=== PATIENT | male | born 1980 | race Caucasian/White ===

== ENCOUNTER 2019-12-30 10:01 | Emergency (ER) | payer SELFPAY ==
[~2019-12-30] VITALS: Ht 190.5 cm; Wt 225.2 kg
--- NOTE | 2019-12-30 10:27 | ED Integumentary General ---
General Chief Complaint: Skin/Wound Problems Stated Complaint: RT LEG PAIN/REDNESS,LOW BP,FEVER Source: patient Exam Limitations: no limitations History of Present Illness Date Seen by Provider: Dec 30, 2019 Time Seen by Provider: 10:15 Initial Comments Patient with a history of a nonhealing superficial wound of his right lower leg for several months. Has been seen his PCP with gradual improvement. Does have chronic edema of both lower extremities. This morning noticed some redness and increased swelling of his right leg around the wound, he went to the [facility] and was sent to the ER for treatment for cellulitis. Denies significant pain, no recent injury, no chest pain or shortness of air. Allergies and Home Medications Allergies Coded Allergies: Sulfa (Sulfonamide Antibiotics) (Verified Allergy, Unknown, 12/30/19) lisinopril (Verified Allergy, Unknown, 12/30/19) Patient Home Medication List Home Medication List Reviewed: Yes Review of Systems Review of Systems Constitutional: see HPI; No fever, No malaise Respiratory: No cough, No short of breath Cardiovascular: No chest pain, No palpitations Musculoskeletal: see HPI; No joint pain Skin: change in color, lesions Past Zbfgjld-Klzusu-Cqqape Hx Past Med/Social Hx: Reviewed Nursing Past Med/Soc Hx Physical Exam Vital Signs Capillary Refill : General Appearance: WD/WN, no apparent distress Extremities: normal range of motion, non-tender, no pedal edema, normal capillary refill Neurologic/Psychiatric: alert, normal mood/affect Skin: normal color, warm/dry, other (RLE: superficial wound lower ant. leg, erythema surrounding wound and up to mid leg (below knee). No lymphad., no abscess, no induration) Departure Impression Primary Impression: Cellulitis Qualified Codes: L03.115 - Cellulitis of right lower limb Disposition: HOME, SELF-CARE Condition: Stable Departure-Patient Inst. Referrals: SELF,MATTIE LARSEN (PCP/Family) Primary Care Physician Patient Instructions: Cellulitis (Skin Infection), Adult (DC) Add. Discharge Instructions: see your doctor for re-evaluation on Wednesday.....ER sooner if significantly worse. All discharge instructions reviewed with patient and/or family. Voiced understanding. Scripts Cephalexin (Cephalexin) 500 Mg Tablet 500 MG PO Q6H, #28 TAB Prov: KELLE WEBB DO 12/30/19 KELLE WEBB DO Dec 30, 2019 10:27
[2019-12-30] MEDS ORDERED: CEPH500T PO (10:29)
[2019-12-30 10:45] VITALS: BP 126/74
== END 2019-12-30 10:45 | disposition home or self-care (01) ==
LOC: ER FS 10:04
DX: L03.115 Cellulitis of right lower limb (principal); Z88.2 Allergy status to sulfonamides; Z88.8 Allergy status to other drugs, medicaments and biological substances
CPT/HCPCS: 99282